=== PATIENT | male | born 1995 | race Caucasian/White ===

== ENCOUNTER 2017-02-02 16:29 | Emergency (ER) | payer BC ==
[2017-02-02 16:47] VITALS: RESP 16
--- NOTE | 2017-02-02 17:35 | EDPHY ---
H & P Stated Complaint: Skiing, last wednesday-photophobia, lethargy. Time Seen by Provider: 02/02/17 17:34 HPI/ROS: CHIEF COMPLAINT: Persistent headache and nausea following head injury HISTORY OF PRESENT ILLNESS: The patient presents to the ED with complaints of a moderate to severe persistent headache since striking his head on a tree while skiing over 1 week ago. The patient reports photophobia, nausea but no vomiting. He denies neck pain, focal numbness, weakness or additional complaints. The patient was wearing a helmet which was extensively damage. He also cracked his ski goggles. The patient has no complaints of back pain, chest pain, shortness of breath or abdominal pain. REVIEW OF SYSTEMS: A comprehensive 10 point review of systems is otherwise negative aside from elements mentioned in the history of present illness. Source: Patient - Personal History Current Tetanus/Diphtheria Vaccine: Unsure Current Tetanus Diphtheria and Acellular Pertussis (TDAP): Unsure - Medical/Surgical History Hx Asthma: No Hx Chronic Respiratory Disease: No Hx Diabetes: No Hx Cardiac Disease: No Hx Renal Disease: No Hx Cirrhosis: No Hx Alcoholism: No Hx HIV/AIDS: No Hx Splenectomy or Spleen Trauma: No Other PMH: Bipolar-not on meds now, L toe-reimplantation, concussions. L elbow fracture, broken ribs, marijuana - Social History Smoking Status: Current some day smoker - Physical Exam Exam: General Appearance: Alert, no distress Head: Atraumatic Eyes: Pupils equal, round, reactive ENT, Mouth: No hemotympanum, no oral trauma Neck: Nontender, trachea midline Respiratory: No chest wall tender, subcutaneous air, lungs clear bilaterally Cardiovascular: Regular rate and rhythm Abdomen: Abdomen is soft and nontender, pelvis stable Skin: No lacerations, No abrasion Back: No midline T/L/S pain Extremities: Nontender, full range of motion Neurological: A&Ox3, normal motor function, normal sensory exam Constitutional: Initial Vital Signs Temperature (C) 36.3 C 02/02/17 16:40 Heart Rate 66 02/02/17 16:40 Respiratory Rate 16 02/02/17 16:40 Blood Pressure 114/68 02/02/17 16:40 O2 Sat (%) 95 02/02/17 16:40 O2 Delivery Mode Room Air Allergies/Adverse Reactions: cat dander Allergy (Severe, Verified 02/02/17 16:47) Hives Home Medications: Medication Instructions Recorded NK [No Known Home Meds] 02/02/17 Medical Decision Making - Diagnostics Imaging: CT head without contrast: Images reviewed by myself and discussed with radiologist Dr. Syd Bermudez, negative for intracranial hemorrhage, skull fracture or other acute traumatic injury. ED Course/Re-evaluation: The patient presents to the ED with symptoms of a post concussive syndrome with symptoms of headache, nausea and photophobia. The patient was taken for CT scan of the head given the severity of his complaints which demonstrates no evidence of an intracranial hemorrhage or skull fracture. The patient is noted to be neurologically intact. The patient has no evidence of cervical spine injury clinically. He has no evidence of additional traumatic injury. Patient will be discharged home with concussion aftercare instructions as well as a prescription for Phenergan and naproxen. The patient will be referred to our concussion specialist for ongoing symptoms. Differential Diagnosis: Differential diagnosis considered includes intracranial hemorrhage, skull fracture, concussion Departure - Departure Disposition: Home, Routine, Self-Care Clinical Impression: Concussion Condition: Good Instructions: Concussion (ED) Additional Instructions: 1. Please use Phenergan as needed for nausea. 2.Take Ibuprofen or Motrin 600 mg by mouth three times a day. 3. Concussion aftercare as directed 4. Please follow up with concussion specialist Dr. Heather Rodríguez you have been referred to for any symptoms which persists past 3-4 days. Referrals: Heather Rodríguez MD [Medical Doctor] - As per Instructions
[2017-02-02 18:22] VITALS: BP 132/79; PULSE 65; TEMP 98.2; O2SAT 97
== END 2017-02-02 18:30 | disposition home or self-care (01) ==
DX: S06.0X0A Concussion without loss of consciousness, initial encounter (principal); F17.200 Nicotine dependence, unspecified, uncomplicated; W22.8XXA Striking against or struck by other objects, initial encounter; Y99.8 Other external cause status; Y93.23 Activity, snow (alpine) (downhill) skiing, snowboarding, sledding, tobogganing and snow tubing

== ENCOUNTER 2017-09-11 02:04 | Emergency (ER) | payer BC ==
--- NOTE | 2017-09-11 02:38 | EDPHY ---
H & P Stated Complaint: Cough, fever, congestion x2 weeks, Sharp abd pain today. Time Seen by Provider: 09/11/17 02:28 HPI/ROS: Chief Complaint: Abdominal pain, cough, fever HPI: 22-year-old male has been having a cough and fever with sinus congestion for the last couple of weeks. He was seen by primary care and started on levofloxacin. He has been taking that for the last 11 days. Today started having some abdominal pain about 8 o'clock in the evening. Some nausea. Vomited and diarrhea last night but none in the last 24 hours. Pain is crampy and generalized. It comes and goes. At worst it is a 8/10. Right now is a dull ache at a 410 in his right upper quadrant. Has had some subjective fevers or chills. No difficulty urinating. Also has some pain with deep inspiration. He has has a cough productive of greenish sputum. ROS: 10 point Review of Systems is negative except as noted in the HPI. PMH: Denies Social History: No smoking, occasional alcohol, occasional marijuana Family History: non-contributory Physical Exam: Gen: Awake, Alert, No Distress HEENT: Nose: no rhinorrhea Eyes: PERRLA, EOMI Mouth: Moist mucosa Neck: Supple, no JVD Chest: nontender, lungs clear to auscultation Heart: S1, S2 normal, no murmur Abd: Soft, very mild epigastric tenderness to palpation, no Gutiérrez sign, no tenderness at McBurney's point. Soft benign abdomen., no guarding Back: no CVA tenderness, no midline tenderness Ext: no edema, non-tender Skin: no rash Neuro: CN II-XII intact, Sensation grossly intact, Strength 5/5 in bilateral upper and lower extremities - Personal History Current Tetanus/Diphtheria Vaccine: Unsure Current Tetanus Diphtheria and Acellular Pertussis (TDAP): Unsure - Medical/Surgical History Hx Asthma: No Hx Chronic Respiratory Disease: No Hx Diabetes: No Hx Cardiac Disease: No Hx Renal Disease: No Hx Cirrhosis: No Hx Alcoholism: No Hx HIV/AIDS: No Hx Splenectomy or Spleen Trauma: No Other PMH: Bipolar-not on meds now, L toe-reimplantation, concussions. L elbow fracture, broken ribs, marijuana - Social History Smoking Status: Former smoker Constitutional: Initial Vital Signs Temperature (C) 37.0 C 09/11/17 02:09 Heart Rate 71 09/11/17 02:09 Respiratory Rate 17 09/11/17 02:09 Blood Pressure 134/83 H 09/11/17 02:09 O2 Sat (%) 95 09/11/17 02:09 O2 Delivery Mode Room Air Allergies/Adverse Reactions: cat dander Allergy (Severe, Verified 02/02/17 16:47) Hives Medical Decision Making - Diagnostics Imaging Results: Chest x-ray is negative per my interpretation. Imaging: I viewed and interpreted images myself ED Course/Re-evaluation: 22-year-old male with viral upper respiratory symptoms the last couple weeks. [place] care [place] called him in a prescription for Levaquin which she has been taking for the last 11 days. He has some epigastric and right upper quadrant pain with no real significant abdominal tenderness. Repeat examination shows a soft benign abdomen. He has not have a leukocytosis. His liver function is entirely normal. I do not think he has appendicitis. This would be extremely unlikely given the fact that he has been on Levaquin for the last 11 days. No evidence of acute cholecystitis and I would doubt this as well given the antibiotics. I think his symptoms are secondary to a viral infection. I am not sure why his doctor started him on such a strong antibiotic only 2 days into an upper respiratory symptoms. I have advised him to discontinue. He will also start taking a probiotic. He has had some loose stools over the course last week but there are no symptoms to suggest C difficile colitis at this time. I will refer him for outpatient follow-up on Wednesday, return for worsening. - Data Points Laboratory Results: Laboratory Results 09/11/17 02:44 09/11/17 02:44 09/11/17 09/11/17 02:44 02:44 WBC 4.28 10^3/uL 10^3/uL (3.80-9.50) RBC 5.36 10^6/uL 10^6/uL (4.40-6.38) Hgb 17.2 g/dL g/dL (13.7-17.5) Hct 46.5 % % (40.0-51.0) MCV 86.8 fL fL (81.5-99.8) MCH 32.1 pg pg (27.9-34.1) MCHC 37.0 g/dL H g/dL (32.4-36.7) RDW 11.8 % % (11.5-15.2) Plt Count 159 10^3/uL 10^3/uL (150-400) MPV 10.0 fL fL (8.7-11.7) Neut % (Auto) 60.2 % % (39.3-74.2) Lymph % (Auto) 27.8 % % (15.0-45.0) [place] % (Auto) 11.4 % % (4.5-13.0) Eos % (Auto) 0.2 % L % (0.6-7.6) Baso % (Auto) 0.2 % L % (0.3-1.7) Nucleat RBC Rel Count 0.0 % % (0.0-0.2) Absolute Neuts (auto) 2.57 10^3/uL 10^3/uL (1.70-6.50) Absolute Lymphs (auto) 1.19 10^3/uL 10^3/uL (1.00-3.00) Absolute Monos (auto) 0.49 10^3/uL 10^3/uL (0.30-0.80) Absolute Eos (auto) 0.01 10^3/uL L 10^3/uL (0.03-0.40) Absolute Basos (auto) 0.01 10^3/uL L 10^3/uL (0.02-0.10) Absolute Nucleated RBC 0.00 10^3/uL 10^3/uL (0-0.01) Immature Gran % 0.2 % % (0.0-1.1) Immature Gran # 0.01 10^3/uL 10^3/uL (0.00-0.10) Sodium 144 mEq/L mEq/L (134-144) Potassium 4.1 mEq/L mEq/L (3.5-5.2) Chloride 102 mEq/L mEq/L (97-110) Carbon Dioxide 26 mEq/l mEq/l (22-31) Anion Gap 16 mEq/L mEq/L (8-16) BUN 17 mg/dL mg/dL (7-23) Creatinine 1.2 mg/dL mg/dL (0.7-1.3) Estimated GFR > 60 Glucose 85 mg/dL mg/dL (70-100) Calcium 9.7 mg/dL mg/dL (8.5-10.4) Total Bilirubin 0.7 mg/dL mg/dL (0.1-1.4) AST 31 IU/L IU/L (17-59) ALT 32 IU/L IU/L (21-72) Alkaline Phosphatase 68 IU/L IU/L (38-126) Total Protein 7.0 g/dL g/dL (6.3-8.2) Albumin 4.8 g/dL g/dL (3.5-5.0) Lipase 97 IU/L IU/L (23-300) Medications Given: Discontinued Medications Fentanyl (Sublimaze) 50 mcg IVP EDNOW ONE Stop: 09/11/17 02:39 Last Admin: 09/11/17 02:49 Dose: 50 mcg Ondansetron HCl (Zofran) 4 mg IVP EDNOW ONE Stop: 09/11/17 02:51 Last Admin: 09/11/17 02:50 Dose: 4 mg Departure - Departure Disposition: Home, Routine, Self-Care Clinical Impression: Viral syndrome Condition: Good Instructions: Viral Syndrome (ED) Additional Instructions: Discontinue taking the antibiotic started by her primary care physician. Make sure to start taking a probiotic daily. Alternate acetaminophen (1000 mg) with ibuprofen (400 mg) every 4 hours as needed for fevers, chills, aches or pains. Follow up with a local primary care physician in 2-3 days. I have given your referral. Return to the emergency department for increasing abdominal pain, chest pain, cough, fevers, chills, or any other concerns. Referrals: Maddie Jaramillo DO [Doctor of Osteopathy] - As per Instructions
[2017-09-11] MEDS ORDERED: ONDANSETRON 4 MG/2 ML VIAL ONE (02:48)
[2017-09-11] MEDS: fentaNYL 100 MCG/2 ML INJ IVP ONE (02:49)
[2017-09-11] MEDS: ONDANSETRON 4 MG/2 ML VIAL IVP ONE (02:50)
[2017-09-11 02:53] LABS: ADD DIFF? NO; ADD SCAN? NO; ATYPICAL LYMPHOCYTE FLAG 10 (0-99); FRAGMENT RBC FLAG 0 (0-99); LEFT SHIFT FLG 0 (0-99); RED CELL DISTRIBUTION WIDTH 11.8 % (11.5-15.2)
[2017-09-11 03:10] LABS: ALANINE AMINOTRANSFERASE 32 IU/L (21-72); ALBUMIN 4.8 g/dL (3.5-5.0); ALKALINE PHOSPHATASE 68 IU/L (38-126); ANION GAP 16 mEq/L (8-16); ASPARTATE AMINOTRANSFERASE 31 IU/L (17-59); BILIRUBIN,TOTAL 0.7 mg/dL (0.1-1.4); CALCIUM 9.7 mg/dL (8.5-10.4); CARBON DIOXIDE 26 mEq/l (22-31); CHLORIDE 102 mEq/L (97-110); CREATININE 1.2 mg/dL (0.7-1.3); GLOMERULAR FILTRATION RATE > 60; GLUCOSE 85 mg/dL (70-100); POTASSIUM 4.1 mEq/L (3.5-5.2); SODIUM 144 mEq/L (134-144)
[2017-09-11 03:13] LABS: % IMMATURE GRANULYOCYTES 0.2 % (0.0-1.1); ABSOLUTE IMMATURE GRANULOCYTES 0.01 10^3/uL (0.00-0.10); ADD MORPH? NO; HEMATOCRIT 46.5 % (40.0-51.0); HEMOGLOBIN 17.2 g/dL (13.7-17.5); LIPEMIA HEMOLYSIS FLAG 90 (0-99); MEAN CELL HEMOGLOBIN 32.1 pg (27.9-34.1); MEAN CELL VOLUME 86.8 fL (81.5-99.8); PLATELET CLUMPS FLAG 0 (0-99); PLATELET COUNT 159 10^3/uL (150-400); RED BLOOD CELL COUNT 5.36 10^6/uL (4.40-6.38)
[2017-09-11 04:40] VITALS: BP 121/85; PULSE 73; RESP 16; TEMP 97.9; O2SAT 98
== END 2017-09-11 04:39 | disposition home or self-care (01) ==
DX: B34.9 Viral infection, unspecified (principal); Z87.891 Personal history of nicotine dependence
CPT/HCPCS: 96374; J2405; J3010